=== PATIENT | male | born 1980 | race Caucasian/White ===

== ENCOUNTER 2022-08-09 14:10 | Emergency (ER) | payer BC, OTHER ==
[2022-08-09] MEDS ORDERED: Sulfameth/Trimethoprim DS 800-160mg TAB ONE (16:08)
== END 2022-08-09 16:28 | disposition home or self-care (01) ==
LOC: NAV ERS 14:10
DX: S62.617B Displaced fracture of proximal phalanx of left little finger, initial encounter for open fracture (principal); W23.0XXA Caught, crushed, jammed, or pinched between moving objects, initial encounter